=== PATIENT | female | born 1990 | race African-American/Black ===

== ENCOUNTER 2019-04-16 07:40 | Inpatient (IN) | payer MEDICAID ==
[~2019-04-16] VITALS: Ht 149.9 cm; Wt 78.9 kg
[2019-04-16] MEDS ORDERED: DEXT 5%/LACTATED RINGERS 1,000 ML IV SCH (09:46)
[2019-04-16] MEDS ORDERED: ROPIVACAINE HCL/PF EPIDURAL 200 ML EPI SCH (11:00)
[2019-04-16] MEDS ORDERED: NALBUPHINE HCL 10 MG/ML AMP IV PRN (11:00)
[2019-04-16] MEDS: DEXT 5%/LR + PITOCIN 20UNITS/L 1,000 ML IV SCH (12:01)
[2019-04-16] MEDS: BUTORPHANOL TARTRATE 2 MG/ML VIAL IV PRN ×3 (12:30→17:32)
[2019-04-16 12:47] LABS: BASOPHILS % 0.9 % (0.0-2.0); EOSINOPHILS % 1.8 % (0.0-5.0); HEMATOCRIT. 34.1 % (36.0-48.0); HEMOGLOBIN. 11.8 g/dL (12.0-16.0); LYMPHOCYTES % 20.3 % (20.0-50.0); MEAN CORPUSCULAR HEMOGLOBIN 31.9 pg (28.0-32.0); MEAN CORPUSCULAR VOLUME 92.2 fL (81.0-99.0); MONOCYTES % 7.3 % (2.0-8.0); NEUTROPHILS % 69.7 % (40.0-76.0); PLATELET 134 x1000/uL (130-400); RED CELL DISTRIBUTION WIDTH 13.1 % (11.6-14.6)
[2019-04-16 12:49] LABS: CLARITY URINE CLEAR (CLEAR); COLOR URINE DARK YELLOW (YELLOW); KETONES URINE 1+ (NEGATIVE); LEUKOCYTE ESTERASE URINE NEGATIVE (NEGATIVE); NITRITE URINE NEGATIVE (NEGATIVE); OCCULT BLOOD URINE NEGATIVE (NEGATIVE); PROTEIN URINE NEGATIVE (NEGATIVE); SPECIFIC GRAVITY URINE 1.021 (1.005-1.030)
[2019-04-16 12:55] LABS: INR 0.9; PARTIAL THROMBOPLASTIN TIME 27.5 sec (23.4-31.0)
[2019-04-16 13:15] LABS: *AMPHETAMINES SCREEN URINE NEGATIVE (NEGATIVE)
[2019-04-16 13:16] LABS: *BARBITURATES SCREEN URINE NEGATIVE (NEGATIVE); *BENZODIAZEPINES SCREEN URINE NEGATIVE (NEGATIVE); *COCAINE SCREEN URINE NEGATIVE (NEGATIVE); CANNABINOID URINE SCREEN NEGATIVE (NEGATIVE); OPIATES URINE SCREEN NEGATIVE (NEGATIVE); PHENCYCLIDINE URINE SCREEN NEGATIVE (NEGATIVE)
[2019-04-16 13:28] LABS: HEPATITIS B SURFACE ANTIGEN NEGATIVE
[2019-04-17] MEDS: DEXT 5%/LR + PITOCIN 20UNITS/L 1,000 ML IV SCH (11:38)
[2019-04-17] MEDS ORDERED: DEXT 5%/LR + PITOCIN 20UNITS/L 1,000 ML IV SCH (12:24)
[2019-04-17] MEDS ORDERED: BISACODYL 10MG SUPP PR PRN (12:30)
[2019-04-17] MEDS ORDERED: ACETAMINOPHEN WITH CODEINE 300/30MG TABLET PO PRN ×2 (12:30)
[2019-04-17] MEDS ORDERED: IBUPROFEN 400MG TABLET PO PRN (12:30)
[2019-04-17] MEDS ORDERED: GLYCERIN/WITCH HAZEL LEAF MEDICATED PAD TOP PRN (12:30)
[2019-04-17] MEDS ORDERED: HEMORRHOIDAL SUPP PR PRN (12:30)
[2019-04-17] MEDS ORDERED: BENZOCAINE/LANOLIN/ALOE VERA SPRAY TOP PRN (12:30)
[2019-04-17] MEDS ORDERED: METHYLERGONOVINE MALEATE 0.2 MG/ML IM NR (14:15)
[2019-04-17] MEDS: IBUPROFEN 800MG TABLET PO PRN (14:44)
[2019-04-17 15:35] VITALS: BP 125/65
[2019-04-17 15:40] LABS: METHADONE URINE SCREEN NEGATIVE (NEGATIVE)
[2019-04-17 16:15] VITALS: BP 121/68
[2019-04-17 20:00] VITALS: BP 118/73
[2019-04-17] MEDS: SIMETHICONE 80MG TABLET CHEW PO SCH (21:00)
[2019-04-17] MEDS: MAGNESIUM/ALUMINUM HYDROXIDE/SIMETHICONE 30ML UDC PO SCH (21:00)
[2019-04-17] MEDS: DOCUSATE SODIUM 100MG CAPSULE PO SCH (21:09)
[2019-04-18 04:00] VITALS: BP 109/55
[2019-04-18 07:20] LABS: BASOPHILS % 0.3 % (0.0-2.0); EOSINOPHILS % 1.1 % (0.0-5.0); HEMOGLOBIN. 9.9 g/dL (12.0-16.0); LYMPHOCYTES % 10.3 % (20.0-50.0); MEAN CORPUSCULAR HEMOGLOBIN 31.5 pg (28.0-32.0); MEAN CORPUSCULAR VOLUME 92.4 fL (81.0-99.0); MEAN PLATELET VOLUME 10.2 fl (7.4-10.4); NEUTROPHILS % 82.3 % (40.0-76.0); PLATELET 135 x1000/uL (130-400); RED BLOOD CELL COUNT 3.13 mill/uL (4.2-5.4); RED CELL DISTRIBUTION WIDTH 13.2 % (11.6-14.6)
[2019-04-18 08:00] VITALS: BP 116/66
[2019-04-18] MEDS: MAGNESIUM/ALUMINUM HYDROXIDE/SIMETHICONE 30ML UDC PO SCH ×4 (08:24→21:00)
[2019-04-18] MEDS: IBUPROFEN 800MG TABLET PO PRN (08:25)
[2019-04-18] MEDS: SIMETHICONE 80MG TABLET CHEW PO SCH ×4 (08:26→21:00)
[2019-04-18] MEDS: FERROUS SULFATE 325MG TABLET PO SCH ×3 (08:26→17:41)
[2019-04-18] MEDS ORDERED: PRENATAL VIT/FE FUMARATE/FA TABLET PO SCH (09:00)
[2019-04-18 16:30] VITALS: BP 106/66
[2019-04-18 20:00] VITALS: BP 112/71
[2019-04-18] MEDS: DOCUSATE SODIUM 100MG CAPSULE PO SCH (21:14)
[2019-04-19 04:00] VITALS: BP 114/73
[2019-04-19] MEDS: IBUPROFEN 800MG TABLET PO PRN (04:36)
[2019-04-19 08:00] VITALS: BP 99/52
== END 2019-04-19 10:05 | disposition home or self-care (01) | DRG 560 ==
LOC: OBSVTOIN 07:40 → 8 EST LDRP 07:40 → 8EST 04-17 15:35
PROVIDERS: ADMIT Obstetrics & Gynecology; ATTEND Obstetrics & Gynecology
PROC: 10E0XZZ Delivery of Products of Conception, External Approach (ICD-10-PCS; principal; 2019-04-18)
PROC: 3E0R3BZ Introduction of Anesthetic Agent into Spinal Canal, Percutaneous Approach (ICD-10-PCS; 2019-04-18)
PROC: 00HU33Z Insertion of Infusion Device into Spinal Canal, Percutaneous Approach (ICD-10-PCS; 2019-04-18)
DX: O80 Encounter for full-term uncomplicated delivery (principal); Z37.0 Single live birth; Z3A.39 39 weeks gestation of pregnancy
CPT/HCPCS: 36415; 80305; 81003; 85025; 86592; 86703; 86762; 86850; 86900; 87340; G0378; J0595; J2590; J2795